=== PATIENT | male | born 1945 | race Caucasian/White ===

== ENCOUNTER 2018-11-09 07:12 | Day surgery (SDC) | payer MEDICARE, OTHER ==
[~2018-11-09 07:12] MED LIST: Buffered Lidocaine 1% SYRIN* 1 ML/SYRINGE INTRADERM ONE; Dexamethasone IV* 4 MG/ML 1 ML (4 MG) IV SLOW PU ONE; Famotidine TAB* 20 MG PO ONE; Lactated Ringers 1000 ML Bag* 1,000 ML IV SCH
[2018-11-09] MEDS ORDERED: oxyCODONE TAB* 5 MG TAB PO PRN (07:23)
[2018-11-09] MEDS ORDERED: Acetaminophen TAB* 325 MG PO PRN (07:23)
[2018-11-09] MEDS ORDERED: fentaNYL* 50 MCG/ML 2 ML VIAL (100 MCG VIAL) IV PRN (07:23)
[2018-11-09] MEDS ORDERED: Naloxone* 0.4 MG/ML 1 ML VIAL IV PRN (07:23)
[2018-11-09] MEDS ORDERED: DiMENhydriNATE IV* 50 MG/ML VIAL IV PUSH PRN (07:23)
[2018-11-09] MEDS ORDERED: HYDROcodone/ACETAMIN 5-325 MG* 1 TAB PO PRN (07:23)
[2018-11-09] MEDS ORDERED: Famotidine IV* 10 MG/ML 2 ML (20 mg) ONE (07:24)
[2018-11-09] MEDS ORDERED: cefTRIAXone(*) 2 GM ADDV.VIAL IVPB ONE (07:24)
[2018-11-09] MEDS ORDERED: Dexamethasone IV* 4 MG/ML 1 ML (4 MG) ONE (07:24)
[2018-11-09] MEDS ORDERED: hydrALAZINE IV* 20 MG/ML VIAL ONE (08:11)
[2018-11-09] MEDS ORDERED: Buffered Lidocaine 1% SYRIN* 1 ML/SYRINGE INTRADERM ONE (08:20)
[2018-11-09] MEDS ORDERED: Famotidine TAB* 20 MG ONE (08:37)
[2018-11-09] MEDS ORDERED: fentaNYL* 50 MCG/ML 2 ML VIAL (100 MCG VIAL) ONE (09:24)
[2018-11-09] MEDS ORDERED: Propofol* 10 MG/ML 20 ML BTL ONE (09:24)
[2018-11-09] MEDS ORDERED: Lidocaine 2% PF * 5 ML VIAL ONE (09:24)
[2018-11-09] MEDS ORDERED: Iohexol 180 (CONTRAST) 10 ML SDV IV ONE (09:32)
[2018-11-09] MEDS ORDERED: hydrALAZINE IV* 20 MG/ML VIAL IV SLOW PU PRN (09:33)
[2018-11-09] MEDS ORDERED: Ondansetron INJ* 2 MG/ML VIAL ONE (09:50)
[2018-11-09 11:06] VITALS: BP 161/80
--- NOTE | 2018-11-09 12:45 | OP ---
CC: Dr. Villalta OPERATIVE REPORT: DATE OF OPERATION: 11/09/18 DATE OF : 49 SURGEON: Donald Ojeda MD ANESTHESIOLOGIST: Dr. Arcadio Belle. ANESTHESIA: General. PRE-OP DIAGNOSIS: Proximal left ureteral calculus (8 mm). POST-OP DIAGNOSES: 1. Benign prostatic hyperplasia. 2. Impacted proximal left ureter calculus. OPERATIVE PROCEDURE: 1. Cystoscopy. 2. Left retrograde pyelography. 3. Insertion of left ureteral stent (6-[place] Islander). INDICATION FOR PROCEDURE: Mr. Moore is a 73-year-old white male who has history of renal calculus disease and who on work-up for back pain had an x-ray of his spine, showing left renal calculi. They were further worked up with a noncontrast CT of the abdomen and pelvis, which showed 2 nonobstructing calculi in the left kidney measuring 1 cm each and another 8 mm calculus just distal to the left ureteropelvic junction associated with mild hydronephrosis. Because of the above history, the patient was scheduled for shockwave lithotripsy and insertion of a left ureteral stent next week. The patient has been having on and off episodes of left flank pain and he is planning to be out of town for a family function and his concern is that he is going to develop an episode of left renal colic while out of town, and he wanted to have the stent inserted prior to the planned shockwave lithotripsy. KUB done preoperatively showed the left proximal calculus in the same position. PATHOLOGY: At fluoroscopy, a radiopaque calculus was noted in the area of the proximal ureter just distal to the ureteropelvic junction. At cystoscopy, the penile and bulbar urethra looked normal. The prosthetic urethra measured about 3.5 cm in length and there was significant degree of obstruction by trilobar hyperplasia of the prostate. The prostatic urethra and the bladder neck were vascular with rather large and engorged veins. The ureteral orifices looked normal. Examination of the bladder showed moderate trabeculations. No suspicious bladder lesions seen. No calculi or diverticuli were noted. The left ureter calculus was impacted and a glidewire had to be used to bypass it. Retrograde pyelography showed mild left hydronephrosis. DESCRIPTION OF PROCEDURE: After successful general anesthesia, the patient was placed in the lithotomy position and was prepped and draped for a cystoscopy. Cystoscopy was performed. The findings in the prostatic urethra and the bladder neck and the bladder were noted. A hybrid flexible tip guidewire was then introduced into the left orifice and passed into the proximal ureter under fluoroscopy guidance. The guidewire would not go beyond the left ureteral calculus due to its impaction. A glidewire was then used and after several attempts was successfully introduced past the stone and inside the renal pelvis. The open-ended catheter was then fed on top of the glidewire and positioned in the renal pelvis and retrograde pyelography was performed. The hybrid wire was then placed thru the open-ended catheter. A size 6-[place] stent was then placed with the proximal end coiling in an upper pole calyx and the distal end coiling inside the bladder. On fluoro, the ureteral calculus was still in the same position in the proximal ureter. The cystoscope was removed. A size 16-[place] Islander Hollins catheter was then passed inside the bladder and the balloon inflated with 10 cc of water. The patient tolerated the procedure well and left the operating room in good condition. The plan is to remove the Hollins catheter after the patient is recovered. The patient is scheduled to come back early next week for shockwave lithotripsy of the left ureteral calculus. The plan is to leave the stent for at leat one week post op to allow for resolution of the edema after the SWL [id number]/[facility] #: [id number] MTDSukh
== END 2018-11-09 12:03 | disposition home or self-care (01) ==
LOC: OR 07:12
PROVIDERS: ATTEND Urology
DX: N13.2 Hydronephrosis with renal and ureteral calculous obstruction (principal); N40.0 Benign prostatic hyperplasia without lower urinary tract symptoms; I25.10 Atherosclerotic heart disease of native coronary artery without angina pectoris; Z95.5 Presence of coronary angioplasty implant and graft; I10 Essential (primary) hypertension; I34.0 Nonrheumatic mitral (valve) insufficiency; G47.33 Obstructive sleep apnea (adult) (pediatric); Z87.442 Personal history of urinary calculi
CPT/HCPCS: 74420; A9270-GY; C1876; J0360; J0696; J1100; J2405; J2704; J3010

== ENCOUNTER 2018-11-14 05:53 | Day surgery (SDC) | payer MEDICARE, OTHER ==
--- NOTE | 2018-11-03 07:00 | HP ---
CC: Dr. Villalta * HISTORY AND PHYSICAL: DATE OF PLANNED ADMISSION AND SURGERY: 11/14/18 HISTORY OF PRESENT ILLNESS: Mr. Moore is a 73-year-old white male who is admitted with left renal calculus for shockwave lithotripsy, cystoscopy with insertion of left ureteral stent. 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 He has been followed at [facility] by Dr. Orta. He presented to my office for his continued urological care. He has had an x-ray of his lumbosacral spine because of back pain and there were incidental findings of radiopaque calculi in the left kidney. He has been having on and off episodes of left flank pain associated with some nausea. He, however, did not have any severe symptoms to suggest renal colic. His urinalysis also had shown microscopic hematuria. For further evaluation of the renal calculi, the patient had a noncontrast CT of the abdomen and pelvis. The study showed 2 calculi measuring about 1 cm each located in the lower pole and in the midpole calices of the left kidney. There was minimal left hydronephrosis and there was a 1 cm calculus noted just distal to the left ureteropelvic junction, accounting for the episodes of Left flank pain. PAST MEDICAL HISTORY AND SYSTEM REVIEW: The patient is overall healthy. He is hypertensive, maintained on losartan 50 mg daily and HCTZ 12.5 mg daily and on Bystolic 5 mg daily. He is on 1 regular aspirin, which will be discontinued 1 week preadmission. He has hyperlipidemia, on atorvastatin 10 mg daily. He takes potassium citrate 20 mEq twice a day for his stone disease. He is also on folic acid daily. He is on fish oil and multivitamins. He has chronic back pain and he is on glucosamine and chondroitin. ALLERGIES: The patient denies any allergies to medications. FAMILY HISTORY: Negative. SOCIAL HISTORY: He is a nonsmoker. No history of alcohol intake. PHYSICAL EXAMINATION GENERAL: He is a moderately overweight, otherwise pleasant-looking white male. VITALS SIGNS: Blood pressure 140/90, pulse of 56. LUNGS: Clear. HEART: Regular and rhythmic. No murmurs. ABDOMEN: Soft. No masses, no tenderness, and no CVA tenderness. EXTERNAL GENITALIA: Normal. RECTAL: Showed a moderately enlarged, but nonsuspicious prostate. IMPRESSION: Nonobstructing left renal calculi and minimally obstructing 1-cm calculus at the left ureteropelvic junction, probably the cause of his intermittent left flank pain. PLAN: Plan is for shockwave lithotripsy of the left renal calculus, followed by cystoscopy and insertion of the left ureteral stent. I discussed the above plan in detail with the patient. All his questions were answered. Some of the potential complications of the procedure include gross hematuria, renal colic, small incidence of renal hematoma. [id number] #: [id number] [facility]
--- NOTE | 2018-11-04 14:41 | HP ---
HISTORY AND PHYSICAL: ADDENDUM: This is an addendum on the history and physical on Mr. Moore, 73- year- old white male, who is scheduled to be admitted on 11/14/18 for shockwave lithotripsy of a left renal calculus, followed by cystoscopy and the insertion of left ureteral stent. The patient has been having on and off episodes of left flank pain and he is planning to leave town prior to the scheduled procedure. He is concerned that he is going to have an acute episode of renal colic while he is away, and he wanted to have placement of left ureteral stent prior to the scheduled shockwave lithotripsy. The plan therefore is to proceed with cystoscopy and left ureteral stent insertion on 11/09/18. He will be brought back in on 11/14/18 for shockwave lithotripsy of the left renal calculus. I discussed the above plans with the patient and he is agreeable. [id number] #: [id number] MTDD
[~2018-11-14 05:53] MED LIST changes: -Dexamethasone IV* 4 MG/ML 1 ML (4 MG) IV SLOW PU ONE; +DiMENhydriNATE IV* 50 MG/ML VIAL IV PUSH PRN; -Famotidine TAB* 20 MG PO ONE; -Lactated Ringers 1000 ML Bag* 1,000 ML IV SCH; +Morphine 4 MG/ML VIAL (1 ml) 4 MG/ML VIAL IV PRN; +Naloxone* 0.4 MG/ML 1 ML VIAL IV PRN; +PROCHLORPERAZINE INJ 5 MG/ML 2 ML VIAL IV PRN; +fentaNYL* 50 MCG/ML 2 ML VIAL (100 MCG VIAL) IV PRN; +oxyCODONE/Acetamin 5/325 MG* TAB PO PRN
[2018-11-14] MEDS ORDERED: Lactated Ringers 1000 ML Bag* 1,000 ML IV SCH (06:00)
[2018-11-14] MEDS ORDERED: Famotidine IV* 10 MG/ML 2 ML (20 mg) IV ONE (06:00)
[2018-11-14] MEDS ORDERED: Ondansetron INJ* 2 MG/ML VIAL ONE (06:00)
[2018-11-14] MEDS ORDERED: Dexamethasone TAB* 4 MG PO ONE (06:00)
[2018-11-14] MEDS ORDERED: Dexamethasone TAB* 4 MG ONE (06:15)
[2018-11-14] MEDS ORDERED: Buffered Lidocaine 1% SYRIN* 1 ML/SYRINGE INTRADERM ONE (06:15)
[2018-11-14] MEDS ORDERED: Ondansetron ODT TAB* 4 MG ONE (06:15)
[2018-11-14] MEDS ORDERED: Famotidine IV* 10 MG/ML 2 ML (20 mg) ONE (06:15)
[2018-11-14] MEDS ORDERED: cefTRIAXone(*) 2 GM ADDV.VIAL IVPB ONE (06:16)
[2018-11-14] MEDS ORDERED: Midazolam* 1 MG/ML 2 ML VIAL (2 MG) ONE (07:22)
[2018-11-14] MEDS ORDERED: fentaNYL* 50 MCG/ML 2 ML VIAL (100 MCG VIAL) ONE (07:22)
[2018-11-14] MEDS ORDERED: KETAMINE HCL* 50 MG/ML 10 ML VIAL ONE (07:22)
[2018-11-14] MEDS ORDERED: Lidocaine 2% PF * 5 ML VIAL ONE (07:51)
[2018-11-14] MEDS ORDERED: Propofol* 10 MG/ML 20 ML BTL ONE (07:51)
[2018-11-14] MEDS ORDERED: Phenylephrine 10 MG/ML VIAL* 1 ML VIAL ONE (07:51)
[2018-11-14 10:27] VITALS: BP 152/82
--- NOTE | 2018-11-14 13:06 | OP ---
CC: Dr. Villalta * DATE OF OPERATION: 11/14/18 - [facility] DATE OF : 49 SURGEON: Donald Ojeda MD ANESTHESIOLOGIST: Dr. Quintin Luna. ANESTHESIA: General. PRE-OP DIAGNOSES: 1. Left renal calculi. 2. Calculus at left ureteropelvic junction. 3. Status post placement of left ureteral stent. POST-OP DIAGNOSES: 1. Left renal calculi. 2. Calculus at left ureteropelvic junction. 3. Status post placement of left ureteral stent. OPERATIVE PROCEDURE: Shockwave lithotripsy of calculus at left ureteropelvic junction (8 mm). INDICATION FOR PROCEDURE: Mr. Moore is a 73-year-old white male who is a known stone former and who presented with an obstructing impacted 8 mm calculus at the left ureteropelvic junction. There were also two calculi, each measuring about 8 mm, noted in the mid pole and lower pole calyces of the left kidney. The patient had cystoscopy and placement of left ureteral stent about 5 days ago. He is now admitted for treatment of the left UPJ stone. PATHOLOGY; Preoperative KUB and fluoroscopy, both showed the calculus at the left ureteropelvic junction. Two left renal calculi were seen again in the Left kidney. DESCRIPTION OF PROCEDURE: After successful general anesthesia, the patient was placed in the supine position on the shock wave lithotripsy table. The calculus at the left ureteropelvic junction was visualized in both the PA and the oblique x-ray views, and the position of the generator and of the patient were adjusted to have that stone in the focus of the shock waves. A total of 2,400 shocks were then delivered at a rate of 60 shocks per minute. The proper positioning and fragmentation of the stone were monitored periodically. Through the treatment, the left renal calculus showed partial fragmentation but not enough to treat the left renal calculi. The total of the 2,400 shocks were delivered to the calculus at the left ureteropelvic junction. The patient tolerated the procedure well and left the operating room in good condition. The plan is to see the patient in the office next week with a KUB. Decision will be made regarding the stent removal. [id number]/CPS #: [id number] MTDD
== END 2018-11-14 10:28 | disposition home or self-care (01) ==
LOC: OR 05:53
PROVIDERS: ATTEND Urology
DX: N20.2 Calculus of kidney with calculus of ureter (principal); I10 Essential (primary) hypertension; I25.10 Atherosclerotic heart disease of native coronary artery without angina pectoris; Z95.5 Presence of coronary angioplasty implant and graft; E78.5 Hyperlipidemia, unspecified
CPT/HCPCS: 74018; A9270-GY; J0696; J2250; J2704; J3010; J8540

== ENCOUNTER 2019-06-12 05:41 | Day surgery (SDC) | payer MEDICARE, OTHER ==
--- NOTE | 2019-05-22 06:53 | HP ---
CC: Dr. Villalta * HISTORY AND PHYSICAL: DATE OF PLANNED ADMISSION AND SURGERY: 06/12/19 HISTORY OF PRESENT ILLNESS: Mr. Moore is a 74-year-old white male with known recurrent renal calculi, who is admitted for shockwave lithotripsy of left renal calculi and possible cystoscopy and insertion of left ureteral stent. Mr. Moore is a known stone former, who had required shockwave lithotripsy of right renal calculi in the past and a shockwave lithotripsy of a 1 cm left renal calculus in November 2018. He had adequate fragmentation of the larger stone, but there were still some fragments that dropped into the lower pole calyx of the left kidney. He passed several stone fragments and the stone analysis showed them to be a combination of calcium phosphate and calcium oxalate. The patient had a routine followup visit and renal imaging including renal ultrasound which showed non-obstructing calculi in the left renal pelvis measuring total of about [address] scan, and KUB confirmed the findings. The stone fragments were felt to be too large for spontaneous passage and because of that location of the renal pelvis and the likelihood they will drop into the ureter, the patient is admitted for the above procedure. The patient has been having on and off left flank pain, he was not sure if it was musculoskeletal or renal. Urinalysis at that time was positive for blood, negative otherwise. PAST MEDICAL HISTORY AND SYSTEM REVIEW: He is hypertensive, maintained on losartan 50 mg daily, HCTZ 12.5 mg daily, and Bystolic 5 mg daily. He is not on any aspirin. He has hyperlipidemia, on atorvastatin 10 mg daily. He has been maintained on potassium citrate 20 mEq twice a day for his stone disease. He is on supplements with folic acid, fish oil, and multivitamins. He takes glucosamine and chondroitin for his chronic joint pain. ALLERGIES: He denies any allergies to medications. FAMILY HISTORY: Negative. SOCIAL HISTORY: He is a nonsmoker. No alcohol intake and no recreational drug use. There is no history of any mental health problems. PHYSICAL EXAMINATION GENERAL: He is moderately overweight, otherwise healthy-looking white male. VITAL SIGNS: Blood pressure 130/80, pulse of 60. LUNGS: Clear. HEART: Regular and rhythmic. No murmurs. ABDOMEN: Soft. No masses, no tenderness, and no CVA tenderness. EXTERNAL GENITALIA: Circumcised. No penile lesions. Normal testes and no inguinal hernias. RECTAL: Exam showed a moderately enlarged but nonsuspicious prostate. IMPRESSION: 1. Episodes of left flank pain with 2 calculi in the left renal pelvis measuring total of about 1 cm, without hydronephrosis. 2. Hypertension, well controlled. 3. Hyperlipidemia, on treatment. PLAN: Plan is for shockwave lithotripsy of the left renal calculi. We will decide at the completion of the procedure if a cystoscopy and left ureteral stent insertion are indicated. [id number]/[facility] #: [id number] MTDD
[~2019-06-12 05:41] MED LIST changes: -DiMENhydriNATE IV* 50 MG/ML VIAL IV PUSH PRN; -Morphine 4 MG/ML VIAL (1 ml) 4 MG/ML VIAL IV PRN; -Naloxone* 0.4 MG/ML 1 ML VIAL IV PRN; -PROCHLORPERAZINE INJ 5 MG/ML 2 ML VIAL IV PRN; -fentaNYL* 50 MCG/ML 2 ML VIAL (100 MCG VIAL) IV PRN; -oxyCODONE/Acetamin 5/325 MG* TAB PO PRN
[2019-06-12] MEDS ORDERED: Lactated Ringers 1000 ML Bag* 1,000 ML IV SCH (06:00)
[2019-06-12] MEDS ORDERED: Sodium Citrate/Citric Acid* 15 ML UDC PO ONE (06:00)
[2019-06-12] MEDS ORDERED: Sodium Citrate/Citric Acid* 15 ML UDC ONE (06:17)
[2019-06-12] MEDS ORDERED: cefTRIAXone(*) 2 GM ADDV.VIAL IVPB ONE (06:17)
[2019-06-12] MEDS ORDERED: Buffered Lidocaine 1% SYRIN* 1 ML/SYRINGE INTRADERM ONE (06:17)
[2019-06-12] MEDS ORDERED: Ondansetron INJ* 2 MG/ML VIAL IV PRN (07:19)
[2019-06-12] MEDS ORDERED: fentaNYL* 50 MCG/ML 2 ML VIAL (100 MCG VIAL) IV PRN (07:19)
[2019-06-12] MEDS ORDERED: Naloxone* 0.4 MG/ML 1 ML VIAL IV PRN (07:19)
[2019-06-12] MEDS ORDERED: Iohexol 180 (CONTRAST) 10 ML SDV IV ONE (07:48)
[2019-06-12] MEDS ORDERED: Propofol* 10 MG/ML 20 ML BTL ONE (07:49)
[2019-06-12] MEDS ORDERED: fentaNYL* 50 MCG/ML 2 ML VIAL (100 MCG VIAL) ONE (07:50)
[2019-06-12] MEDS ORDERED: Lidocaine 2% PF * 5 ML VIAL ONE (07:50)
[2019-06-12 09:48] VITALS: BP 169/81
--- NOTE | 2019-06-12 10:40 | OP ---
CC: Dr. Villalta * DATE OF OPERATION: 06/12/19 - [facility] DATE OF : 49 SURGEON: Donald Ojeda MD ANESTHESIOLOGIST: Pascual Perez DO ANESTHESIA: General. PRE-OP DIAGNOSIS: Left renal calculi. PRE-OP DIAGNOSIS: Left renal calculi. OPERATIVE PROCEDURE: Shockwave lithotripsy of left renal calculi (1 cm and 8 x 3 mm). INDICATION FOR PROCEDURE: Mr. Moore is a 74-year-old white male who is a known stone former and who had undergone shockwave lithotripsy of a 1-cm calculus of the left renal pelvis 7 months ago. At that time, he had residual renal calculi and he passed several stone fragments. On his recent evaluation, he was noted to have residual left renal calculi, one measuring 1 cm located in the left renal pelvis and the other one measuring 8 x 3 mm located in the lower pole calyx of the left kidney. Because of the above findings, the patient is admitted for the above procedure. PATHOLOGY: Preoperative KUB and fluoroscopy on the operating room table showed that the calculus in the left renal pelvis had dropped into the lower pole calyx adjacent to the other calculus. No other abnormal calcifications were noted. DESCRIPTION OF PROCEDURE: After successful general anesthesia, the patient was placed in the supine position on the shockwave lithotripsy table. The left renal calculi were visualized on fluoroscopy on both the PA and oblique x-ray views, and the position of the patient and of the generator were adjusted to have the stones in the focus of the shock waves. A total of 2,400 shock waves were then delivered at the rate of 60 shocks per minute. A 2 minutes break was taken at 200 shocks. The proper positioning and fragmentation of the stones were monitored periodically. At the completion of the treatment, there was excellent fragmentation of both stones with the stone fragments taking the shape of the lower pole infundibulum and the lower pole calyx. Because of the good fragmentation of the stone, it was decided not to place a ureteral stent. The patient tolerated the procedure well and left the operating room in good condition. [id number]/CPS #: [id number] MTDD
== END 2019-06-12 09:45 | disposition home or self-care (01) ==
LOC: OR 05:41
PROVIDERS: ATTEND Urology
PROC: 0TF4XZZ Fragmentation in Left Kidney Pelvis, External Approach (ICD-10-PCS; principal; 2019-06-12 07:30)
DX: N20.0 Calculus of kidney (principal); I10 Essential (primary) hypertension; E78.5 Hyperlipidemia, unspecified; I25.10 Atherosclerotic heart disease of native coronary artery without angina pectoris; N40.0 Benign prostatic hyperplasia without lower urinary tract symptoms; Z79.899 Other long term (current) drug therapy
CPT/HCPCS: 74018; A9270-GY; J0696; J2704; J3010